=== PATIENT | male | born 1955 | race Caucasian/White ===

== ENCOUNTER → 2016-07-27 | Outpatient (REF) | payer MEDICARE, BC ==
[~2016-07-27] MED LIST: *CXR; /CLON1TA PO; /LABE20TA; /LABE20TA PO; /PANT40TA; /TAMS4CA; /WARF3TA PO; /WARF5TA; ACET65TA OR; ALLE25CA OR; ALLO300T2 PO; AMLO10TA OR; AMLO5TAB2 PO; AMOXIL875 PO; ASPI81TA83 OR; ATENOLOL50 PO; AUGM875T27 PO; CALC0.25 PO; COLA100C2; COLA100C2 OR; COLC0.6T34 PO; CORE25TA OR; CORE25TA PO; DIOVAN3/25 PO; DIOVANHCT PO; DYNACIRC PO; FERR325T; FLOMAX 0.4 PO; HCTZ25 PO; HYDR25TA7 PO; HYDROD25 PO; KEFL500C; LABE100T2; LISINOPR20 PO; PLAV75TA2 OR; PROS5TAB; TESSALO100 PO; THIA100T OR; TYLE-18 PO; VIAG100T PO; VITA500047 PO; ZESTORET20 PO; ZESTRIL PO; ZESTRIL20 PO; ZITHROM500 PO; sodium bicarbonate
[2016-07-27 17:39] LABS: INR 1.99
== END ==
LOC: M SFHCCLAY 11:12
PROVIDERS: ATTEND Nurse Practitioner Family
DX: Z51.81 Encounter for therapeutic drug level monitoring (principal); Z79.01 Long term (current) use of anticoagulants

== ENCOUNTER → 2016-08-10 | Outpatient (REF) | payer MEDICARE, BC ==
[2016-08-10 18:07] LABS: INR 2.08
== END ==
LOC: M SFHCCLAY 11:59
PROVIDERS: ATTEND Nurse Practitioner Family
DX: Z51.81 Encounter for therapeutic drug level monitoring (principal); Z79.01 Long term (current) use of anticoagulants; I48.91 Unspecified atrial fibrillation

== ENCOUNTER → 2016-09-08 | Outpatient (REF) | payer MEDICARE, BC ==
[2016-09-08 17:53] LABS: INR 1.97
== END ==
LOC: M SFHCCLAY 09:59
PROVIDERS: ATTEND Nurse Practitioner Family
DX: Z79.01 Long term (current) use of anticoagulants (principal)

== ENCOUNTER → 2016-09-23 | Outpatient (REF) | payer MEDICARE, BC ==
[2016-09-23 11:32] LABS: INR 2.29
== END ==
LOC: M SFHCCLAY 09:06
PROVIDERS: ATTEND Nurse Practitioner Family
DX: Z79.01 Long term (current) use of anticoagulants (principal)

== ENCOUNTER → 2016-10-13 | Outpatient (REF) | payer MEDICARE, BC ==
[2016-10-13 13:45] LABS: INR 2.1
== END ==
LOC: M SFHCCLAY 07:48
PROVIDERS: ATTEND Nurse Practitioner Family
DX: Z79.01 Long term (current) use of anticoagulants (principal)

== ENCOUNTER → 2016-11-03 | Outpatient (REF) | payer MEDICARE, BC ==
[2016-11-03 11:49] LABS: INR 2.46
== END ==
LOC: M SFHCCLAY 09:29
PROVIDERS: ATTEND Nurse Practitioner Family
DX: Z79.01 Long term (current) use of anticoagulants (principal)

== ENCOUNTER → 2016-12-01 | Outpatient (REF) | payer MEDICARE, BC ==
[2016-12-01 11:22] LABS: INR 3.09
[2016-12-01 11:29] LABS: ALBUMIN 3.1 GM/DL (3.2-5.2); ALBUMIN/GLOBULIN RATIO 0.94 (1.00-1.93); BILIRUBIN,TOTAL 1.6 MG/DL (0.2-1.0); CALCIUM LEVEL 9.1 MG/DL (8.8-10.2); CREATININE FOR GFR 5.03 MG/DL (0.70-1.30); GLOMERULAR FILTRATION RATE 12.5 (>49); POTASSIUM SERUM 3.9 MEQ/L (3.5-5.1); TOTAL PROTEIN 6.4 GM/DL (6.4-8.2); URIC ACID 5.5 MG/DL (3.5-7.2)
== END ==
LOC: M SFHCCLAY 06:57
PROVIDERS: ATTEND Nurse Practitioner Family
DX: R73.01 Impaired fasting glucose (principal); E78.4 Other hyperlipidemia; M10.9 Gout, unspecified; E55.9 Vitamin D deficiency, unspecified; Z79.01 Long term (current) use of anticoagulants

== ENCOUNTER → 2016-12-15 | Outpatient (REF) | payer MEDICARE, BC ==
[2016-12-15 11:36] LABS: INR 2.78
== END ==
LOC: M SFHCCLAY 07:48
PROVIDERS: ATTEND Nurse Practitioner Family
DX: Z79.01 Long term (current) use of anticoagulants (principal)

== ENCOUNTER → 2017-01-12 | Outpatient (REF) | payer MEDICARE, BC ==
[~2017-01-12] MED LIST changes: +ALBU17IN2 INH; +AMOX875T PO; +BENZ100C5 PO; +CARV6.25 PO; +COMBAER6 INH; +E-ZMIS3 XX; +PRED20TA PO; +ZITHTAB PO
[2017-01-12 12:13] LABS: INR 2.81
== END ==
LOC: M SFHCCLAY 07:26
PROVIDERS: ATTEND Nurse Practitioner Family
DX: Z79.01 Long term (current) use of anticoagulants (principal)

== ENCOUNTER → 2017-02-08 | Outpatient (CLI) | payer MEDICARE, BC ==
--- NOTE | 2017-02-08 13:37 | REP ---
Chest two views HISTORY: Cough Comparison: 08/01/2013 The lungs are clear. The cardiac silhouette is enlarged. The pulmonary vasculature is normal in appearance. The bony structure is intact. IMPRESSION: Cardiomegaly.
== END ==
LOC: M CLY 11:01
PROVIDERS: ATTEND Nurse Practitioner Family
DX: J40 Bronchitis, not specified as acute or chronic (principal); R05 Cough; I51.7 Cardiomegaly
CPT/HCPCS: 71020; 85610; G0463

== ENCOUNTER 2017-02-09 12:31 | Emergency (ER) | payer MEDICARE, BC ==
[~2017-02-09] VITALS: Ht 182.9 cm; Wt 92.0 kg
[~2017-02-09 12:31] MED LIST changes: -ALBU17IN2 INH; -AMOX875T PO; -BENZ100C5 PO; -CARV6.25 PO; -COMBAER6 INH; -E-ZMIS3 XX; -PRED20TA PO; -ZITHTAB PO
[2017-02-09] MEDS ORDERED: CARV6.25 PO (12:48)
[2017-02-09] MEDS ORDERED: PRED20TA PO (12:48)
[2017-02-09] MEDS ORDERED: AMOX875T PO (12:48)
[2017-02-09] MEDS ORDERED: BENZ100C5 PO (12:48)
[2017-02-09] MEDS ORDERED: methylPREDNISolone INJ 125 MG/2 ML VIAL (J2930) IV ONE (13:15)
[2017-02-09] MEDS ORDERED: IPRATROPIUM 0.5MG/ALBUTEROL 2.5MG INH SOL UD 3ML (DUONEB)(J7620) NEB ONE ×2 (13:15→16:30)
[2017-02-09 13:27] LABS: BASO % 0.9 % (0.0-1.0); EOS % 0.2 % (0.0-3.0); LARGE UNSTAINED CELL # 0.1 K/mm3 (0.0-0.4); LARGE UNSTAINED CELL % 1.9 % (0.0-4.0); LYMPH # 0.4 K/mm3 (1.5-4.5); LYMPH % 10.3 % (24.0-44.0); MEAN CORPUSCULAR HEMOGLOBIN 35.5 pg (27.0-33.0); MEAN CORPUSCULAR HGB CONC 33.6 g/dl (32.0-36.5); MEAN CORPUSCULAR VOLUME 105.5 fl (80.0-96.0); MONO # 0.2 K/mm3 (0.0-0.8); MONO % 4.5 % (0.0-5.0); NEUTROPHILS # 3.3 K/mm3 (1.8-7.7); NEUTROPHILS % 82.2 % (36.0-66.0); PLATELET COUNT, AUTOMATED 133 k/mm3 (150-450); RED CELL DISTRIBUTION WIDTH 14.5 % (11.5-14.5)
[2017-02-09 13:42] LABS: ALBUMIN 3.4 GM/DL (3.2-5.2); ALBUMIN/GLOBULIN RATIO 0.69 (1.00-1.93); BILIRUBIN,DIRECT 0.7 MG/DL (0.0-0.2); BILIRUBIN,TOTAL 1.2 MG/DL (0.2-1.0); GLOMERULAR FILTRATION RATE 12.5 (>49); POTASSIUM SERUM 4.2 MEQ/L (3.5-5.1); TOTAL PROTEIN 8.3 GM/DL (6.4-8.2)
[2017-02-09] MEDS: ALBUTEROL SULFATE 2.5 MG/0.5 ML INH NEB SOLN NEB SCH ×2 (13:46→14:03)
--- NOTE | 2017-02-09 14:09 | ECGEPIP ---
Stationary ECG Study [facility] - ED Test Date: 2017-02-09 Pat Name: DEANNA MORALES Department: Room: - Gender: M Baker Bench: janet : 1955 Requested By: KETURAH ACKERMAN Order Number: [id number] Reading MD: Elly Alonso Measurements Intervals [place] Rate: 70 P: DC: 0 QRS: 97 QRSD: 130 T: -10 QT: 431 QTc: 465 Interpretive Statements ATRIAL FIBRILLATION RIGHT BUNDLE BRANCH BLOCK NSTTW ABNORMALITY DECREASED RATE 07/05/13 Electronically Signed On 02-09-2017 14:08:44 EDT by Elly Alonos
[2017-02-09 14:10] LABS: ABG BASE EXCESS 2.5 (-2.0-2.0); ABG HCO3 26.4 MEQ/L (22.0-26.0); ABG PARTIAL PRESSURE CO2 38.2 mmHg (35.0-45.0); ABG PARTIAL PRESSURE O2 183.3 mmHg (75.0-100.0); ABG STANDARD HCO3 26.8 MEQ/L (22.0-26.0); ABG TOTAL CO2 27.5 MEQ/L (23.0-31.0); ABG pH (ARTERIAL) 7.457 UNITS (7.350-7.450)
--- NOTE | 2017-02-09 14:24 | REP ---
CHEST PA/LATERAL: 02/09/2017 COMPARISON: 02/08/2017, 08/01/2013, 07/05/2013. CLINICAL HISTORY: Dyspnea and cough. The lung langston are well inflated and are without effusion, lateral pleural thickening, or apical scar. There is cardiomegaly with left atrial and ventricular enlargement and a somewhat globular heart configuration. It is unchanged from yesterday, regarding heart size. There is pulmonary venous hypertension without pulmonary edema. No pleural effusion or dense consolidation. A few cuffed bronchi in the perihilar regions are noted. This might reflect reactive airway disease or bronchitis. Bones intact. The aorta is mildly tortuous without aneurysm. Airway midline. No free air. IMPRESSION: 1. Moderate cardiomegaly with left atrial and ventricular enlargement. Some venous hypertension. No wilbert edema, pleural effusion, or definite infiltrate. 2. Peribronchial thickening may reflect reactive airway disease or bronchitis. Signed by Anton Reeves MD 02/09/2017 07:11 P
[2017-02-09] MEDS ORDERED: ISOVUE-370 76% 100ML VIAL (Q9967) As Ordered ONE (15:14)
[2017-02-09] MEDS ORDERED: E-ZMIS3 XX (15:20)
[2017-02-09] MEDS ORDERED: ALBU17IN2 INH (15:20)
[2017-02-09] MEDS ORDERED: COMBAER6 INH (15:20)
[2017-02-09 16:04] LABS: INR 2.05
[2017-02-09] MEDS ORDERED: ZITHTAB PO (16:05)
--- NOTE | 2017-02-09 16:14 | REP ---
CT ANGIO CHEST: 02/09/2017 Comparison: Chest x-ray today, 02/08/1970 Clinical history dyspnea, elevated D-dimer. On hemodialysis. Dialysis will proceed immediately following this examination. Technique: Helical scanning through the chest after infusion of 75 mL of Isovue 370. Coronal and sagittal thick slab MIP reformatting. Findings: Lung langston show some hazy ground-glass opacities in the right upper lung zone suggesting some minor atelectatic change dependent atelectasis in the posterior lower lung zones fibrotic changes peripherally but mild. No effusion or dense consolidation. No parenchymal mass or infiltrate with air bronchograms. Heart is enlarged with left atrial, left ventricular enlargement as well as right heart enlargement. No pericardial thickening or effusion. Atherosclerotic calcifications of the aortic arch and descending portion without aneurysm or dissection. No pathologic sized mediastinal or hilar adenopathy. The main, right and left pulmonary arteries in the mediastinum are without filling defects. Lobar arteries are also without filling defects. There appears to be filling defects in posterior basal segment left lower lobe pulmonary artery and best seen image 144. I do not see other definite filling defects, segmental or subsegmental arteries evaluated. There is no axillary or supraclavicular mass. The sternum, manubrium, clavicles, humeral heads, scapula, ribs and spine are without acute finding. In the upper abdomen. Small amount of ascites around the liver and spleen. There are cysts in the right hepatic lobe on image 223. No gross hepatosplenomegaly or focal lesion. These organs are seen in their entirety. That portion of gallbladder and pancreas were grossly intact. There is another cyst in the liver 3.4 cm in the caudate lobe. Adrenal glands intact. No hiatal hernia. Impression. 1. There is evidence for filling defect in the posterior basal segment of the left lower lobe suggesting pulmonary embolus with the other segmental lumbar and central pulmonary as without filling defects. Subsegmental arteries are not optimally visualized but those seen were grossly intact. 2. Aortic aneurysm or dissection, pathologic sized adenopathy or pleural effusion. 3. Hazy ground-glass opacity right upper lobe suggesting some atelectasis with underlying fibrotic changes. 4. Cardiomegaly with left and right heart enlargement. No pericardial thickening or effusion. Signed by Anton Reeves MD 02/09/2017 07:14 P
[2017-02-09] MEDS ORDERED: AZITHROMYCIN 250 MG TAB PO ONE (16:15)
[2017-02-09 17:01] VITALS: BP 232/117
== END 2017-02-09 17:04 | disposition home or self-care (01) ==
LOC: M ED 12:31
DX: J18.9 Pneumonia, unspecified organism (principal); I26.99 Other pulmonary embolism without acute cor pulmonale; I11.0 Hypertensive heart disease with heart failure; I48.91 Unspecified atrial fibrillation; N18.9 Chronic kidney disease, unspecified; N40.1 Benign prostatic hyperplasia with lower urinary tract symptoms; Z86.73 Personal history of transient ischemic attack (TIA), and cerebral infarction without residual deficits; Z99.2 Dependence on renal dialysis; Z79.01 Long term (current) use of anticoagulants
CPT/HCPCS: 36415; 36600; 71020; 71275; 80048; 80076; 82550; 82553; 82803; 83605; 83880; 84484; 85025; 85379; 85610; 87040; 93005; 93041; 94640; 96374; 99285; J2930; Q9967

== ENCOUNTER → 2017-02-23 | Outpatient (REF) | payer MEDICARE, BC ==
[~2017-02-23] MED LIST changes: +ALBU17IN2 INH; +AMOX875T PO; +BENZ100C5 PO; +CARV6.25 PO; +COMBAER6 INH; +E-ZMIS3 XX; +PRED20TA PO; +ZITHTAB PO
[2017-02-23 12:09] LABS: INR 1.96
== END ==
LOC: M SFHCCLAY 08:42
PROVIDERS: ATTEND Nurse Practitioner Family
DX: Z79.01 Long term (current) use of anticoagulants (principal); I48.91 Unspecified atrial fibrillation

== ENCOUNTER → 2017-03-09 | Outpatient (REF) | payer MEDICARE, BC ==
[2017-03-09 11:53] LABS: INR 2.11
== END ==
LOC: M SFHCCLAY 08:39
PROVIDERS: ATTEND Nurse Practitioner Family
DX: Z79.01 Long term (current) use of anticoagulants (principal)

== ENCOUNTER → 2017-03-23 | Outpatient (REF) | payer MEDICARE, BC ==
[2017-03-23 18:38] LABS: INR 2.39
== END ==
LOC: M SFHCCLAY 10:12
PROVIDERS: ATTEND Nurse Practitioner Family
DX: Z79.01 Long term (current) use of anticoagulants (principal); I48.91 Unspecified atrial fibrillation

== ENCOUNTER → 2017-04-06 | Outpatient (REF) | payer MEDICARE, BC ==
[2017-04-06 12:18] LABS: INR 2.22
== END ==
LOC: M SFHCCLAY 09:14
PROVIDERS: ATTEND Nurse Practitioner Family
DX: Z79.01 Long term (current) use of anticoagulants (principal); Z79.899 Other long term (current) drug therapy; I48.91 Unspecified atrial fibrillation

== ENCOUNTER → 2017-05-04 | Outpatient (REF) | payer MEDICARE, BC ==
[2017-05-04 12:10] LABS: INR 2.24
== END ==
LOC: M SFHCCLAY 08:08
PROVIDERS: ATTEND Nurse Practitioner Family
DX: Z79.01 Long term (current) use of anticoagulants (principal); I48.91 Unspecified atrial fibrillation

== ENCOUNTER → 2017-06-01 | Outpatient (REF) | payer MEDICARE, BC ==
[2017-06-01 12:13] LABS: INR 2.03
== END ==
LOC: M SFHCCLAY 09:27
PROVIDERS: ATTEND Nurse Practitioner Family
DX: Z79.01 Long term (current) use of anticoagulants (principal)

== ENCOUNTER → 2017-06-29 | Outpatient (REF) | payer MEDICARE, BC ==
[2017-06-29 11:49] LABS: INR 2.97
== END ==
LOC: M SFHCCLAY 09:08
PROVIDERS: ATTEND Nurse Practitioner Family
DX: I48.91 Unspecified atrial fibrillation (principal)

== ENCOUNTER → 2017-07-26 | Outpatient (REF) | payer MEDICARE, BC ==
[2017-07-26 11:49] LABS: HEMATOCRIT 40.3 % (42.0-52.0); HEMOGLOBIN 13.5 g/dl (14.0-18.0); MEAN CORPUSCULAR HEMOGLOBIN 34.3 pg (27.0-33.0); MEAN CORPUSCULAR HGB CONC 33.5 g/dl (32.0-36.5); MEAN CORPUSCULAR VOLUME 102.3 fl (80.0-96.0); PLATELET COUNT, AUTOMATED 156 10^3/uL (150-450); RED BLOOD COUNT 3.94 10^6/uL (4.30-6.10); RED CELL DISTRIBUTION WIDTH 14.5 % (11.5-14.5); WHITE BLOOD COUNT 6.2 10^3/uL (4.0-10.0)
[2017-07-26 11:56] LABS: ALBUMIN 3.3 GM/DL (3.2-5.2); ALBUMIN/GLOBULIN RATIO 0.77 (1.00-1.93); ALKALINE PHOSPHATASE 170 U/L (45-117); ALT/SGPT 28 U/L (12-78); ANION GAP 9 MEQ/L (8-16); AST/SGOT 42 U/L (7-37); BILIRUBIN,TOTAL 1.8 MG/DL (0.2-1.0); BLOOD UREA NITROGEN 53 MG/DL (7-18); CALCIUM LEVEL 9.4 MG/DL (8.8-10.2); CARBON DIOXIDE LEVEL 29 MEQ/L (21-32); CHLORIDE LEVEL 92 MEQ/L (98-107); CHOLESTEROL LEVEL 115 MG/DL (<200); CHOLESTEROL RISK RATIO 2.738 (<5); CREATININE FOR GFR 6.42 MG/DL (0.70-1.30); GLOMERULAR FILTRATION RATE 9.4 (>49); GLUCOSE, FASTING 101 MG/DL (80-110); HDL CHOLESTEROL 42 MG/DL (>40); LDL CHOLESTEROL 55.4 MG/DL (<100); NON-HDL-C 73 MG/DL; POTASSIUM SERUM 4.1 MEQ/L (3.5-5.1); SODIUM LEVEL 130 MEQ/L (136-145); TOTAL PROTEIN 7.6 GM/DL (6.4-8.2); TRIGLYCERIDES LEVEL 88 MG/DL (<150); URIC ACID 8.7 MG/DL (3.5-7.2)
[2017-07-26 12:00] LABS: INR 4.48
== END ==
LOC: M SFHCCLAY 08:09
DX: N18.6 End stage renal disease (principal); E78.4 Other hyperlipidemia; M10.9 Gout, unspecified; E55.9 Vitamin D deficiency, unspecified
CPT/HCPCS: 84550

== ENCOUNTER → 2017-08-10 | Outpatient (REF) | payer MEDICARE, BC ==
[2017-08-10 11:52] LABS: INR 3.29
== END ==
LOC: M SFHCCLAY 08:56
DX: I48.91 Unspecified atrial fibrillation (principal)
CPT/HCPCS: 85610

== ENCOUNTER → 2017-08-16 | Outpatient (REF) | payer MEDICARE, BC ==
[2017-08-16 18:35] LABS: INR 3.56; PROTHROMBIN TIME 37.3 SECONDS (12.4-14.5)
== END ==
LOC: M SFHCCLAY 11:07
DX: I48.91 Unspecified atrial fibrillation (principal); Z51.81 Encounter for therapeutic drug level monitoring; Z79.01 Long term (current) use of anticoagulants
CPT/HCPCS: 85610

== ENCOUNTER → 2017-08-23 | Outpatient (REF) | payer MEDICARE, BC ==
[2017-08-23 18:10] LABS: INR 3.93; PROTHROMBIN TIME 40.5 SECONDS (12.4-14.5)
== END ==
LOC: M SFHCCLAY 12:58
DX: I48.91 Unspecified atrial fibrillation (principal)
CPT/HCPCS: 85610

== ENCOUNTER → 2017-08-30 | Outpatient (REF) | payer MEDICARE, BC ==
[2017-08-30 12:04] LABS: INR 2.05; PROTHROMBIN TIME 23.8 SECONDS (12.4-14.5)
== END ==
LOC: M SFHCCLAY 09:17
DX: Z51.81 Encounter for therapeutic drug level monitoring (principal); Z79.02 Long term (current) use of antithrombotics/antiplatelets; I48.91 Unspecified atrial fibrillation
CPT/HCPCS: 85610

== ENCOUNTER → 2017-09-06 | Outpatient (REF) | payer MEDICARE, BC ==
[2017-09-06 17:52] LABS: INR 1.75
== END ==
LOC: M SFHCCLAY 09:52
DX: I48.91 Unspecified atrial fibrillation (principal)
CPT/HCPCS: 85610

== ENCOUNTER → 2017-09-13 | Outpatient (REF) | payer MEDICARE, BC ==
[2017-09-13 11:51] LABS: PROTHROMBIN TIME 23.4 SECONDS (12.4-14.5)
== END ==
LOC: M SFHCCLAY 09:00
DX: I48.91 Unspecified atrial fibrillation (principal)
CPT/HCPCS: 85610

== ENCOUNTER → 2017-09-20 | Outpatient (REF) | payer MEDICARE, BC ==
[2017-09-20 14:29] LABS: INR 1.93; PROTHROMBIN TIME 22.7 SECONDS (12.4-14.5)
== END ==
LOC: M SFHCCLAY 09:47
DX: I48.91 Unspecified atrial fibrillation (principal)
CPT/HCPCS: 85610

== ENCOUNTER → 2017-09-29 | Outpatient (REF) | payer MEDICARE, BC ==
[2017-09-29 11:36] LABS: BASO % 0.8 % (0.0-1.0); EOS # 0.1 10^3/uL (0.0-0.50); EOS % 1.8 % (0.0-3.0); HEMATOCRIT 35.2 % (42.0-52.0); HEMOGLOBIN 11.7 g/dl (14.0-18.0); IMMATURE GRANULOCYTE % 0.4 % (0-3.0); LYMPH # 0.8 10^3/uL (1.5-4.5); LYMPH % 17.2 % (24.0-44.0); MEAN CORPUSCULAR HEMOGLOBIN 35.2 pg (27.0-33.0); MEAN CORPUSCULAR HGB CONC 33.2 g/dl (32.0-36.5); MONO # 0.8 10^3/uL (0.0-0.8); MONO % 16.4 % (0.0-5.0); NEUTROPHILS # 3.1 10^3/uL (1.8-7.7); NEUTROPHILS % 63.4 % (36.0-66.0); PLATELET COUNT, AUTOMATED 146 10^3/uL (150-450); RED BLOOD COUNT 3.32 10^6/uL (4.30-6.10); RED CELL DISTRIBUTION WIDTH 15.3 % (11.5-14.5); WHITE BLOOD COUNT 4.9 10^3/uL (4.0-10.0)
[2017-09-29 11:54] LABS: ALBUMIN 2.9 GM/DL (3.2-5.2); ALBUMIN/GLOBULIN RATIO 0.73 (1.00-1.93); ALKALINE PHOSPHATASE 151 U/L (45-117); ALT/SGPT 19 U/L (12-78); ANION GAP 6 MEQ/L (8-16); AST/SGOT 24 U/L (7-37); BILIRUBIN,TOTAL 1.4 MG/DL (0.2-1.0); BLOOD UREA NITROGEN 13 MG/DL (7-18); CALCIUM LEVEL 8.9 MG/DL (8.8-10.2); CARBON DIOXIDE LEVEL 34 MEQ/L (21-32); CHLORIDE LEVEL 95 MEQ/L (98-107); CREATININE FOR GFR 3.08 MG/DL (0.70-1.30); FREE THYROXINE INDEX 3.6 % (1.4-3.8); GLOMERULAR FILTRATION RATE 21.9 (>49); GLUCOSE, FASTING 105 MG/DL (70-100); POTASSIUM SERUM 3.8 MEQ/L (3.5-5.1); SODIUM LEVEL 135 MEQ/L (136-145); T UPTAKE 37 % (33-40); THYROXINE (T4) 9.7 UG/DL (4.5-12.0); TOTAL PROTEIN 6.9 GM/DL (6.4-8.2); URIC ACID 3.3 MG/DL (3.5-7.2)
[2017-09-29 14:54] LABS: NT-PRO BNP 51955 PG/ML (<125)
== END ==
LOC: M SFHCCLAY 08:25
DX: R60.9 Edema, unspecified (principal); M10.9 Gout, unspecified; N50.89 Other specified disorders of the male genital organs; N18.6 End stage renal disease; W57.XXXA Bitten or stung by nonvenomous insect and other nonvenomous arthropods, initial encounter
CPT/HCPCS: 84443

== ENCOUNTER → 2017-09-29 | Outpatient (CLI) | payer MEDICARE, BC | LOC: M CLY 08:38 | DX: R60.9 Edema, unspecified (principal); I51.7 Cardiomegaly; I28.8 Other diseases of pulmonary vessels | CPT/HCPCS: 71046 ==

== ENCOUNTER 2017-10-24 09:55 | Emergency (ER) | payer MEDICARE, BC ==
[2017-10-24 11:08] LABS: BASO # 0.1 10^3/uL (0.0-0.2); EOS # 0.2 10^3/uL (0.0-0.50); EOS % 2.6 % (0.0-3.0); HEMATOCRIT 38.2 % (42.0-52.0); HEMOGLOBIN 12.9 g/dl (13.5-17.5); IMMATURE GRANULOCYTE % 0.3 % (0-3.0); LYMPH # 0.9 10^3/uL (1.5-4.5); LYMPH % 15.3 % (24.0-44.0); MEAN CORPUSCULAR HEMOGLOBIN 35.3 pg (27.0-33.0); MEAN CORPUSCULAR HGB CONC 33.8 g/dl (32.0-36.5); MEAN CORPUSCULAR VOLUME 104.7 fl (80.0-96.0); MONO # 0.6 10^3/uL (0.0-0.8); MONO % 9.6 % (0.0-5.0); NEUTROPHILS # 4.4 10^3/uL (1.8-7.7); NEUTROPHILS % 71.2 % (36.0-66.0); PLATELET COUNT, AUTOMATED 166 10^3/uL (150-450); RED BLOOD COUNT 3.65 10^6/uL (4.30-6.10); RED CELL DISTRIBUTION WIDTH 15.6 % (11.5-14.5); WHITE BLOOD COUNT 6.2 10^3/uL (4.0-10.0)
[2017-10-24 11:18] LABS: INR 1.35
[2017-10-24 11:34] LABS: LACTIC ACID SEPSIS PROTOCOL 1.6 MMOL/L (0.4-2.0)
[2017-10-24 11:36] LABS: ALBUMIN 3.2 GM/DL (3.2-5.2); ALKALINE PHOSPHATASE 153 U/L (45-117); ALT/SGPT 17 U/L (12-78); AMYLASE 67 U/L (25-115); ANION GAP 9 MEQ/L (8-16); AST/SGOT 28 U/L (7-37); BILIRUBIN,DIRECT 0.8 MG/DL (0.0-0.2); BILIRUBIN,TOTAL 1.4 MG/DL (0.2-1.0); BLOOD UREA NITROGEN 41 MG/DL (7-18); CALCIUM LEVEL 9.9 MG/DL (8.8-10.2); CARBON DIOXIDE LEVEL 28 MEQ/L (21-32); CHLORIDE LEVEL 96 MEQ/L (98-107); CREATININE FOR GFR 4.53 MG/DL (0.70-1.30); GLUCOSE, FASTING 104 MG/DL (70-100); LIPASE 390 U/L (73-393); POTASSIUM SERUM 3.7 MEQ/L (3.5-5.1); SODIUM LEVEL 133 MEQ/L (136-145); TOTAL PROTEIN 7.8 GM/DL (6.4-8.2)
== END 2017-10-24 14:53 | disposition left against medical advice (07) ==
LOC: M ED 09:55
DX: R18.8 Other ascites (principal); I10 Essential (primary) hypertension; K21.9 Gastro-esophageal reflux disease without esophagitis; N40.0 Benign prostatic hyperplasia without lower urinary tract symptoms; Z86.73 Personal history of transient ischemic attack (TIA), and cerebral infarction without residual deficits; Z79.899 Other long term (current) drug therapy; Z79.01 Long term (current) use of anticoagulants; Z87.891 Personal history of nicotine dependence
CPT/HCPCS: 71046

== ENCOUNTER → 2017-10-27 | Outpatient (CLI) | payer MEDICARE, BC | LOC: M RAD 09:20 → M RADPRO 09:20 | DX: R18.8 Other ascites (principal); N18.6 End stage renal disease; N50.89 Other specified disorders of the male genital organs; Z99.2 Dependence on renal dialysis; Z88.1 Allergy status to other antibiotic agents; Z79.01 Long term (current) use of anticoagulants; Z79.899 Other long term (current) drug therapy | CPT/HCPCS: 49083; 76705 ==

== ENCOUNTER 2017-10-29 12:05 | Emergency (ER) | payer MEDICARE, BC | END 2017-10-29 14:16 | disposition home or self-care (01) | LOC: M ED 12:05 | DX: N50.89 Other specified disorders of the male genital organs (principal); N48.89 Other specified disorders of penis; I48.91 Unspecified atrial fibrillation; I12.9 Hypertensive chronic kidney disease with stage 1 through stage 4 chronic kidney disease, or unspecified chronic kidney disease; N18.4 Chronic kidney disease, stage 4 (severe); N40.0 Benign prostatic hyperplasia without lower urinary tract symptoms; Z79.01 Long term (current) use of anticoagulants; Z79.899 Other long term (current) drug therapy; Z99.2 Dependence on renal dialysis; Z86.73 Personal history of transient ischemic attack (TIA), and cerebral infarction without residual deficits; Z98.890 Other specified postprocedural states | CPT/HCPCS: 99282 ==

== ENCOUNTER → 2017-11-18 | Outpatient (CLI) | payer MEDICARE, BC ==
[2017-11-18 13:04] LABS: INR 1.35
== END ==
LOC: M RADPRO 12:21
DX: R18.8 Other ascites (principal); N18.6 End stage renal disease; C61 Malignant neoplasm of prostate; M10.9 Gout, unspecified; I12.0 Hypertensive chronic kidney disease with stage 5 chronic kidney disease or end stage renal disease; E78.00 Pure hypercholesterolemia, unspecified; Z87.09 Personal history of other diseases of the respiratory system; Z88.8 Allergy status to other drugs, medicaments and biological substances
CPT/HCPCS: 49083

== ENCOUNTER → 2017-12-01 | Outpatient (CLI) | payer MEDICARE, BC | LOC: M RADPRO 12:15 | DX: R18.8 Other ascites (principal); Z79.82 Long term (current) use of aspirin; Z79.899 Other long term (current) drug therapy; Z79.01 Long term (current) use of anticoagulants | CPT/HCPCS: 49083 ==

== ENCOUNTER → 2017-12-15 | Outpatient (CLI) | payer MEDICARE, BC | LOC: M RADPRO 12:12 | DX: R18.8 Other ascites (principal); Z99.2 Dependence on renal dialysis; Z79.82 Long term (current) use of aspirin; Z79.899 Other long term (current) drug therapy; Z79.01 Long term (current) use of anticoagulants | CPT/HCPCS: 49083 ==

== ENCOUNTER → 2017-12-29 | Outpatient (CLI) | payer MEDICARE, BC | LOC: M RADPRO 12:12 | DX: R18.8 Other ascites (principal); Z79.82 Long term (current) use of aspirin; Z79.899 Other long term (current) drug therapy | CPT/HCPCS: 49083 ==

== ENCOUNTER → 2018-01-12 | Outpatient (CLI) | payer MEDICARE, BC | LOC: M RADPRO 12:16 | DX: R18.8 Other ascites (principal); Z79.82 Long term (current) use of aspirin; Z79.899 Other long term (current) drug therapy | CPT/HCPCS: 49083 ==

== ENCOUNTER → 2018-01-26 | Outpatient (CLI) | payer MEDICARE, BC | LOC: M RADPRO 12:19 | DX: R18.8 Other ascites (principal); Z79.82 Long term (current) use of aspirin; Z79.01 Long term (current) use of anticoagulants; Z79.899 Other long term (current) drug therapy | CPT/HCPCS: 49083 ==

== ENCOUNTER → 2018-02-09 | Outpatient (CLI) | payer MEDICARE, BC | LOC: M RADPRO 11:16 | DX: R18.8 Other ascites (principal); Z79.82 Long term (current) use of aspirin; Z79.899 Other long term (current) drug therapy; Z79.01 Long term (current) use of anticoagulants | CPT/HCPCS: 49083 ==

== ENCOUNTER → 2018-02-23 | Outpatient (CLI) | payer MEDICARE, BC | LOC: M RADPRO 12:13 | DX: R18.8 Other ascites (principal) | CPT/HCPCS: 49083 ==

== ENCOUNTER → 2018-03-09 | Outpatient (CLI) | payer MEDICARE, BC | LOC: M RADPRO 12:11 | DX: R18.8 Other ascites (principal); Z79.82 Long term (current) use of aspirin; Z79.01 Long term (current) use of anticoagulants; Z79.899 Other long term (current) drug therapy | CPT/HCPCS: 49083 ==

== ENCOUNTER → 2018-03-23 | Outpatient (CLI) | payer MEDICARE, BC | LOC: M RADPRO 12:40 | DX: R18.8 Other ascites (principal) | CPT/HCPCS: 76705 ==

== ENCOUNTER → 2018-03-29 | Outpatient (CLI) | payer MEDICARE, BC | LOC: M RADPRO 08:18 | DX: R18.8 Other ascites (principal); N18.6 End stage renal disease; I12.0 Hypertensive chronic kidney disease with stage 5 chronic kidney disease or end stage renal disease; E78.00 Pure hypercholesterolemia, unspecified; I48.91 Unspecified atrial fibrillation; J44.9 Chronic obstructive pulmonary disease, unspecified; C61 Malignant neoplasm of prostate; M17.0 Bilateral primary osteoarthritis of knee; Z79.82 Long term (current) use of aspirin; Z79.899 Other long term (current) drug therapy; Z79.01 Long term (current) use of anticoagulants; Z87.39 Personal history of other diseases of the musculoskeletal system and connective tissue; Z86.73 Personal history of transient ischemic attack (TIA), and cerebral infarction without residual deficits; Z99.2 Dependence on renal dialysis | CPT/HCPCS: 49083 ==

== ENCOUNTER → 2018-04-20 | Outpatient (CLI) | payer MEDICARE, BC | LOC: M RADPRO 12:17 | DX: R18.8 Other ascites (principal); Z79.82 Long term (current) use of aspirin; Z79.899 Other long term (current) drug therapy; Z79.01 Long term (current) use of anticoagulants | CPT/HCPCS: 49083 ==

== ENCOUNTER → 2018-05-04 | Outpatient (CLI) | payer MEDICARE, BC | LOC: M RADPRO 12:32 | DX: R18.8 Other ascites (principal); Z79.01 Long term (current) use of anticoagulants; Z79.82 Long term (current) use of aspirin; Z79.899 Other long term (current) drug therapy | CPT/HCPCS: 49083 ==

== ENCOUNTER → 2018-05-15 | Outpatient (CLI) | payer MEDICARE, BC | LOC: M RADPRO 11:41 | DX: R18.8 Other ascites (principal); Z79.82 Long term (current) use of aspirin; Z79.899 Other long term (current) drug therapy | CPT/HCPCS: 49083 ==

== ENCOUNTER → 2018-05-31 | Outpatient (CLI) | payer MEDICARE, BC | LOC: M RADPRO 12:43 | DX: R18.8 Other ascites (principal); Z79.82 Long term (current) use of aspirin; Z79.899 Other long term (current) drug therapy; Z79.01 Long term (current) use of anticoagulants | CPT/HCPCS: 49083 ==

== ENCOUNTER → 2018-06-08 | Outpatient (CLI) | payer MEDICARE, BC | LOC: M CLY 15:29 | DX: J90 Pleural effusion, not elsewhere classified (principal); I51.7 Cardiomegaly; J94.8 Other specified pleural conditions; R06.02 Shortness of breath | CPT/HCPCS: 71046; G0463 ==

== ENCOUNTER → 2018-06-15 | Outpatient (CLI) | payer MEDICARE, BC | LOC: M RADPRO 12:25 | DX: J90 Pleural effusion, not elsewhere classified (principal); R18.8 Other ascites; Z79.82 Long term (current) use of aspirin; Z79.899 Other long term (current) drug therapy; Z79.01 Long term (current) use of anticoagulants | CPT/HCPCS: 32555 ==

== ENCOUNTER → 2018-06-23 | Outpatient (CLI) | payer MEDICARE, BC ==
[~2018-06-23] MED LIST changes: +ASPI81TA85 PO; +BENZ-18 PO; -BENZ100C5 PO; +CINA30TA PO; +CLON0.2T PO; +[UNRECOGNIZED DRUG - OTHER] PO
--- NOTE | 2018-06-23 17:10 | REP ---
Ultrasound-guided paracentesis The procedure was performed under the direct supervision of Dr. Ventura. The risks and benefits of the procedure were explained to the patient and informed consent was obtained. The largest pocket of fluid was localized in the left lower quadrant using ultrasound guidance. The skin was prepped and draped in a sterile fashion. 1% lidocaine was used as a local anesthetic. An 8-Thai multi side-hole catheter was inserted using trocar technique. 1400 ml of dileep colored fluid was withdrawn and discarded. The patient tolerated the procedure well and there were no immediate complications. After the appropriate amount of monitored convalescence the patient was discharged from the department. Reviewed by VIELKA Blankenship 06/23/2018 04:56 P Electronically Signed by Rhys Ventura MD 06/23/2018 05:01 P
== END ==
LOC: M RADPRO 14:07
PROVIDERS: ATTEND Internal Medicine Nephrology
DX: R18.8 Other ascites (principal); Z79.82 Long term (current) use of aspirin; Z79.899 Other long term (current) drug therapy; Z79.01 Long term (current) use of anticoagulants

== ENCOUNTER → 2018-06-27 | Outpatient (CLI) | payer MEDICARE, BC ==
[~2018-06-27] MED LIST changes: -*CXR; -/CLON1TA PO; -/LABE20TA; -/LABE20TA PO; -/PANT40TA; -/TAMS4CA; -/WARF3TA PO; -/WARF5TA; -ACET65TA OR; -ALBU17IN2 INH; -ALLE25CA OR; -ALLO300T2 PO; -AMLO10TA OR; -AMLO5TAB2 PO; -AMOX875T PO; -AMOXIL875 PO; -ASPI81TA83 OR; -ASPI81TA85 PO; -ATENOLOL50 PO; -AUGM875T27 PO; -BENZ-18 PO; -CALC0.25 PO; -CARV6.25 PO; -CINA30TA PO; -CLON0.2T PO; -COLA100C2; -COLA100C2 OR; -COLC0.6T34 PO; -COMBAER6 INH; -CORE25TA OR; -CORE25TA PO; -DIOVAN3/25 PO; -DIOVANHCT PO; -DYNACIRC PO; -E-ZMIS3 XX; -FERR325T; -FLOMAX 0.4 PO; -HCTZ25 PO; -HYDR25TA7 PO; -HYDROD25 PO; +ISOVUE-300 61% 50ML VIAL (Q9967) As Ordered; -KEFL500C; -LABE100T2; +LIDOCAINE 2% MDV 20 ML VIAL As Ordered; -LISINOPR20 PO; +MIDAZOLAM INJ 2 MG/2 ML VIAL (J2250) As Ordered; -PLAV75TA2 OR; -PRED20TA PO; -PROS5TAB; -TESSALO100 PO; -THIA100T OR; -TYLE-18 PO; -VIAG100T PO; -VITA500047 PO; -ZESTORET20 PO; -ZESTRIL PO; -ZESTRIL20 PO; -ZITHROM500 PO; -ZITHTAB PO; -[UNRECOGNIZED DRUG - OTHER] PO; +fentaNYL 100 MCG/2 ML INJECTION (J3010) As Ordered; -sodium bicarbonate
== END | disposition home or self-care (01) ==
LOC: M IRPRO 09:02
DX: T82.590A Other mechanical complication of surgically created arteriovenous fistula, initial encounter (principal); N18.6 End stage renal disease
CPT/HCPCS: 36901

== ENCOUNTER → 2018-06-29 | Outpatient (CLI) | payer MEDICARE, BC ==
[~2018-06-29] MED LIST changes: +*CXR; +/CLON1TA PO; +/LABE20TA; +/LABE20TA PO; +/PANT40TA; +/TAMS4CA; +/WARF3TA PO; +/WARF5TA; +ACET65TA OR; +ALBU17IN2 INH; +ALLE25CA OR; +ALLO300T2 PO; +AMLO10TA OR; +AMLO5TAB2 PO; +AMOX875T PO; +AMOXIL875 PO; +ASPI81TA83 OR; +ASPI81TA85 PO; +ATENOLOL50 PO; +AUGM875T27 PO; +BENZ-18 PO; +CALC0.25 PO; +CARV6.25 PO; +CINA30TA PO; +CLON0.2T PO; +COLA100C2; +COLA100C2 OR; +COLC0.6T34 PO; +COMBAER6 INH; +CORE25TA OR; +CORE25TA PO; +DIOVAN3/25 PO; +DIOVANHCT PO; +DYNACIRC PO; +E-ZMIS3 XX; +FERR325T; +FLOMAX 0.4 PO; +HCTZ25 PO; +HYDR25TA7 PO; +HYDROD25 PO; -ISOVUE-300 61% 50ML VIAL (Q9967) As Ordered; +KEFL500C; +LABE100T2; -LIDOCAINE 2% MDV 20 ML VIAL As Ordered; +LISINOPR20 PO; -MIDAZOLAM INJ 2 MG/2 ML VIAL (J2250) As Ordered; +PLAV75TA2 OR; +PRED20TA PO; +PROS5TAB; +TESSALO100 PO; +THIA100T OR; +TYLE-18 PO; +VIAG100T PO; +VITA500047 PO; +ZESTORET20 PO; +ZESTRIL PO; +ZESTRIL20 PO; +ZITHROM500 PO; +ZITHTAB PO; +[UNRECOGNIZED DRUG - OTHER] PO; -fentaNYL 100 MCG/2 ML INJECTION (J3010) As Ordered; +sodium bicarbonate
--- NOTE | 2018-06-29 14:10 | REP ---
Chest x-ray: Two views: History: Post thoracentesis. Comparison study: June 15, 2018. Findings: The patient is status post right thoracentesis. There is no evidence of pneumothorax. There is some residual blunting of the right lateral pleural angle. Cardiomegaly is observed. No visible left pleural effusion. Impression: Small pleural effusion persists improved. No evidence of pneumothorax or other complication. Cardiomegaly is again seen. Electronically Signed by Wade Barnard MD 06/29/2018 03:11 P
--- NOTE | 2018-06-29 16:33 | REP ---
ULTRASOUND-GUIDED RIGHT THORACENTESIS The procedure was performed under the direct supervision of Dr. Barnard. The risks and benefits of the procedure were explained to the patient and informed consent was obtained. The right pleural effusion was localized using ultrasound guidance. The skin was prepped and draped in a sterile fashion. 1% lidocaine was used as a local anesthetic. An 8-Citizen Of [place] multi side-hole catheter was inserted using trocar technique. Approximately half way through the procedure the catheter was inadvertently pulled out. A new 8-Citizen [place] multi side-hole catheter was inserted. 2330 ml of yellow fluid was withdrawn with a sample sent to the lab for analysis. The patient tolerated the procedure well and there were no immediate complications. After the appropriate amount of monitored convalescence the patient was discharged from the department. Reviewed by VIELKA Blankenship 06/29/2018 04:21 P Electronically Signed by Wade Barnard MD 06/29/2018 04:24 P
== END ==
LOC: M RADPRO 12:13
PROVIDERS: ATTEND Internal Medicine Nephrology
DX: J90 Pleural effusion, not elsewhere classified (principal); Z79.82 Long term (current) use of aspirin; Z79.899 Other long term (current) drug therapy; Z79.01 Long term (current) use of anticoagulants

== ENCOUNTER → 2018-07-31 | Outpatient (CLI) | payer MEDICARE, BC ==
--- NOTE | 2018-07-31 13:46 | REP ---
CHEST X-RAY: Two views. HISTORY: Post right thoracentesis radiographs. Rule out pneumothorax. COMPARISON STUDY: June 29, 2018, which was also just post thoracentesis. FINDINGS: Moderate cardiomegaly is again observed. There is a right pleural effusion blunting the right lateral pleural angle similar to the prior study. There is no evidence of pneumothorax. IMPRESSION: Right pleural effusion. Moderate cardiac enlargement. No complication is visible. Electronically Signed by Wade Barnard MD 07/31/2018 01:50 P
--- NOTE | 2018-07-31 19:14 | REP ---
ULTRASOUND-GUIDED RIGHT THORACENTESIS The procedure was performed under the direct supervision of Dr. Barnard. The risks and benefits of the procedure were explained to the patient and informed consent was obtained. The right pleural effusion was localized using ultrasound guidance. The skin was prepped and draped in a sterile fashion. 1% lidocaine was used as a local anesthetic. An 8-Vietnamese multi side-hole catheter was inserted using trocar technique. 2100 ml of yellow fluid was withdrawn and discarded. The patient tolerated the procedure well and there were no immediate complications. After the appropriate amount of monitored convalescence the patient was discharged from the department. Reviewed by VIELKA Blankenship 07/31/2018 04:29 P Electronically Signed by Wade Barnard MD 07/31/2018 07:05 P
== END ==
LOC: M RADPRO 12:26
PROVIDERS: ATTEND Internal Medicine Nephrology
DX: J90 Pleural effusion, not elsewhere classified (principal); I51.7 Cardiomegaly; N18.6 End stage renal disease; I15.0 Renovascular hypertension; Z79.82 Long term (current) use of aspirin; Z79.899 Other long term (current) drug therapy; Z79.01 Long term (current) use of anticoagulants

== ENCOUNTER → 2018-08-15 | Outpatient (CLI) | payer MEDICARE, BC ==
[~2018-08-15] MED LIST changes: +COUM1TAB19 PO; +LIDOCAINE 1% MDV 20ML VIAL As Ordered ONE; +RENV2TAB PO; +TYLE500T78 PO
--- NOTE | 2018-08-15 20:38 | REP ---
Ultrasound-guided paracentesis The procedure was performed under the direct supervision of Dr. Barnard. The risks and benefits of the procedure were explained to the patient and informed consent was obtained. The largest pocket of fluid was localized in the right flank using ultrasound guidance. The skin was prepped and draped in a sterile fashion. 1% lidocaine was used as a local anesthetic. Using ultrasound guidance an 8-Kyrgyz multi side-hole catheter was inserted using trocar technique. 2800 ml of dileep colored fluid was withdrawn and discarded. The patient tolerated the procedure well and there were no immediate complications. After the appropriate amount of monitored convalescence the patient was discharged from the department. Reviewed by VIELKA Blankenship 08/15/2018 02:34 P Electronically Signed by Wade Barnard MD 08/15/2018 08:28 P
== END ==
LOC: M RADPRO 11:13
PROVIDERS: ATTEND Internal Medicine Nephrology
DX: R18.8 Other ascites (principal)

== ENCOUNTER → 2018-08-17 | Outpatient (CLI) | payer MEDICARE, BC ==
[~2018-08-17] MED LIST changes: -LIDOCAINE 1% MDV 20ML VIAL As Ordered ONE
--- NOTE | 2018-08-17 10:11 | REP ---
Chest two views HISTORY: Pleural effusion Comparison: 07/31/2018 Parenchymal density is present in the right lower lobe consistent with atelectasis or infiltrate. A right pleural effusion is present that is increased in size compared to the previous study. The left lung is clear. The cardiac silhouette is enlarged. The pulmonary vasculature is normal in appearance. The bony structure is intact. IMPRESSION: 1. Right lower lobe atelectasis or infiltrate. 2. Right pleural effusion increased in size compared to the previous study. 3. Cardiomegaly. Electronically Signed by Power Jones MD 08/17/2018 10:03 A
== END ==
LOC: M SMT 09:43
PROVIDERS: ATTEND Thoracic Surgery (Cardiothoracic Vascular Surgery)
DX: J90 Pleural effusion, not elsewhere classified (principal); I51.7 Cardiomegaly; R91.8 Other nonspecific abnormal finding of lung field

== ENCOUNTER 2018-08-24 12:07 | Day surgery (SDC) | payer MEDICARE, BC ==
[~2018-08-24] VITALS: Ht 177.8 cm; Wt 88.5 kg
[~2018-08-24 12:07] MED LIST changes: +MUPIROCIN 2% OINT 22 GM TUBE TOP ONE
[2018-08-24] MEDS ORDERED: ceFAZolin 2 GM/D5W 50 ML IV BAG (J0690 PER 500MG) As Ordered ONE (12:26)
[2018-08-24] MEDS ORDERED: MIDAZOLAM INJ 2 MG/2 ML VIAL (J2250) As Ordered ONE ×2 (13:02→13:03)
[2018-08-24] MEDS ORDERED: NS 1,000 ML IV ONE (13:15)
[2018-08-24 14:18] LABS: APPEARANCE, BODY FLUID CLEAR (CLEAR); PLEURAL FL COLOR YELLOW (COLORLESS); SOURCE, BODY FLUID PLEURAL
[2018-08-24 14:45] LABS: PH BODY FLUID 7.649 UNITS (NOT ESTABLISHED); SOURCE, BODY FLUID pH PLEURAL
[2018-08-24 14:50] VITALS: BP 122/74
[2018-08-24 14:55] LABS: AMYLASE, BODY FLUID 34 U/L (NOT ESTABLISHED); CHOLESTEROL, BODY FLUID < 50 MG/DL (NOT ESTABLISHED); SOURCE, BODY FLUID ALBUMIN PLEURAL; SOURCE, BODY FLUID AMYLASE PLEURAL; SOURCE, BODY FLUID CHOL PLEURAL; SOURCE, BODY FLUID GLUCOSE PLEURAL; SOURCE, BODY FLUID TOT PROTEIN PLEURAL; SOURCE, BODY FLUID TRIG PLEURAL; TRIGLYCERIDE, BODY FLUID 34 MG/DL (NOT ESTABLISHED)
[2018-08-24 15:50] LABS: LDH, BODY FLUID 83 U/L (NOT ESTABLISHED); SOURCE, BODY FLUID LDH PLEURAL
--- NOTE | 2018-08-24 16:13 | REP ---
Chest one-view HISTORY: Pleural effusion Comparison: 08/17/2018 A right pleural effusion is present decreased compared to the previous study. The left lung is clear. The cardiac silhouette is enlarged. The pulmonary vasculature is normal in appearance. Impression: 1. Right pleural effusion decreased compared to the previous study. 2. Cardiomegaly. Electronically Signed by Power Jones MD 08/24/2018 04:05 P
--- NOTE | 2018-08-26 18:59 | RO ---
DATE OF PROCEDURE: 08/24/2018 PREPROCEDURE DIAGNOSIS: Recurrent right pleural effusion. POSTPROCEDURE DIAGNOSIS: Recurrent right pleural effusion . PROCEDURE: Insertion of tunneled PleurX catheter. SURGEON: Dr. Héctor Sims VEHICLE CHECK IN CLERK: ANESTHESIA: FINDINGS: PleurX catheter drained two liters of fluid. Chest x-ray showed the PleurX catheter in good place but not all of the fluid had been drained, with blunting of the right costophrenic angle. DESCRIPTION OF PROCEDURE: Under satisfactory moderate sedation achieved with 4 mg of Versed, the patient was prepped and draped in the usual sterile fashion. The entry and exit sites were infiltrated with 1% lidocaine as was the proposed tunnel tract. The pleural effusion was found with the exploring needle and a wire was placed. Incision was made over the wire and at the exit site. A tunnel was created between the exit site and the entrance site. The catheter was pulled through the tunnel. The wire site was then dilated with a peel-away introducer, and the PleurX catheter was placed without difficulty. It was positioned. The wound was closed with a running #4-0 Monocryl subcuticular suture. The catheter was secured to the chest wall with a #3-0 silk suture. Two liters of dileep fluid was drained. The patient tolerated the procedure well and left the operating room in satisfactory condition for the recovery room.
== END 2018-08-24 14:51 | disposition home or self-care (01) ==
LOC: M OPP 12:07
PROVIDERS: ATTEND Thoracic Surgery (Cardiothoracic Vascular Surgery)
DX: J90 Pleural effusion, not elsewhere classified (principal); R18.8 Other ascites; I12.9 Hypertensive chronic kidney disease with stage 1 through stage 4 chronic kidney disease, or unspecified chronic kidney disease; D53.9 Nutritional anemia, unspecified; I48.1 Persistent atrial fibrillation; G45.9 Transient cerebral ischemic attack, unspecified; N18.4 Chronic kidney disease, stage 4 (severe); Z79.01 Long term (current) use of anticoagulants; Z79.82 Long term (current) use of aspirin; Z79.899 Other long term (current) drug therapy; Z86.718 Personal history of other venous thrombosis and embolism; I71.4 Abdominal aortic aneurysm, without rupture; I51.7 Cardiomegaly
CPT/HCPCS: 32550; 36415; 71045; 71250; 76705; 82042; 82150; 82465; 82945; 83615; 83986; 84132; 84157; 84478; 87070; 87075; 87077; 87102; 87116; 87186; 87205; 87206; 88108; 88305; 88313; 89051; J2250

== ENCOUNTER → 2018-08-24 | Outpatient (CLI) | payer MEDICARE, BC ==
--- NOTE | 2018-08-24 11:50 | REP ---
CT of the chest without IV contrast for pleural effusion, evaluation: Comparison is the PA and lateral plain film study dated 08/17/2018. There is a [id number] right pleural effusion with compression atelectasis of the adjacent lung. No nodules or masses are identified. The left lung is clear. There are normal size and mediastinal nodes. The study is insensitive for hilar lymph node enlargement in the absence of IV contrast. Cardiac size is enlarged. There is a tiny pericardial effusion at the cardiac apex measuring 10 mm depth. There is calcified atheroma in the coronary arteries. In the upper abdomen there is ascites adjacent to the liver and spleen. The visualized portions of the kidneys appear atrophic. There is aneurysmal dilatation of the infrarenal l abdominal aorta measuring up to 4 cm in the visualized portion of the aorta. Impression: [id number] right pleural effusion. Tiny pericardial effusion at the cardiac apex. Cardiomegaly. Abdominal ascites. Infrarenal abdominal aortic aneurysm. Electronically Signed by Rhys Barclay MD 08/24/2018 11:42 A
== END ==
LOC: M RAD 10:53
PROVIDERS: ATTEND Thoracic Surgery (Cardiothoracic Vascular Surgery)
DX: I51.7 Cardiomegaly (principal); R18.8 Other ascites; I71.4 Abdominal aortic aneurysm, without rupture; J90 Pleural effusion, not elsewhere classified

== ENCOUNTER → 2018-08-24 | Outpatient (CLI) | payer MEDICARE, BC ==
--- NOTE | 2018-08-24 14:44 | REP ---
LIMITED ABDOMINAL ULTRASOUND: Ultrasound abdomen was performed to evaluate for ascites. There is mild scattered ascites in the abdomen and pelvis. Paracentesis is not performed due to the limited potential clinical benefit not great enough to outweigh potential risks. Electronically Signed by Rhys Ventura MD 08/25/2018 03:16 P
== END ==
LOC: M RADPRO 10:57
PROVIDERS: ATTEND Internal Medicine Nephrology
DX: R18.8 Other ascites (principal); Z53.8 Procedure and treatment not carried out for other reasons

== ENCOUNTER → 2018-08-31 | Outpatient (CLI) | payer MEDICARE, BC ==
[~2018-08-31] MED LIST changes: -MUPIROCIN 2% OINT 22 GM TUBE TOP ONE
--- NOTE | 2018-08-31 09:02 | REP ---
Chest two views HISTORY: Pleural effusion Comparison: 08/24/2018 A right pleural effusion is present slightly decreased compared to the previous study. Parenchymal density is present in the right lower lobe consistent with atelectasis or infiltrate. The left lung is clear. The cardiac silhouette is enlarged. The pulmonary vasculature is normal in appearance. The bony structure is intact. IMPRESSION: 1. Right pleural effusion decreased compared to the previous study. 2. Right lower lobe atelectasis or infiltrate. 3. Cardiomegaly. Electronically Signed by Power Jones MD 08/31/2018 08:53 A
== END ==
LOC: M SMT 08:09
PROVIDERS: ATTEND Thoracic Surgery (Cardiothoracic Vascular Surgery)
DX: J90 Pleural effusion, not elsewhere classified (principal)

== ENCOUNTER → 2018-09-07 | Outpatient (CLI) | payer MEDICARE, BC ==
--- NOTE | 2018-09-07 13:20 | REP ---
Clinical: Evaluate for ascites. Technique: Real time arceo scale ultrasound examination using curved array transducer. Findings: Generalized ultrasound examination through the abdomen and pelvis demonstrates a mild amount of ascites primarily in the right perihepatic space and right lower abdomen. Impression: Mild amount of ascites below threshold for paracentesis. Electronically Signed by Kenroy Veliz MD 09/07/2018 01:12 P
== END ==
LOC: M RADPRO 12:09
PROVIDERS: ATTEND Internal Medicine Nephrology
DX: R18.8 Other ascites (principal)

== ENCOUNTER → 2018-10-05 | Outpatient (CLI) | payer MEDICARE, BC ==
[~2018-10-05] MED LIST changes: -/CLON1TA PO; -/LABE20TA; -/LABE20TA PO; -/PANT40TA; -/TAMS4CA; -/WARF3TA PO; -/WARF5TA; +CLON-412 PO; +COUM1TAB17; +FLOM0.4C39; +LABE1TAB11; +LABE1TAB11 PO; +PROT1TAB2
--- NOTE | 2018-10-05 14:44 | REP ---
LIMITED ABDOMINAL ULTRASOUND: Limited abdominal ultrasound is performed to evaluate for ascites prior to a scheduled paracentesis. Minimal free fluid is seen in the abdomen and pelvis. There is not sufficient amount of ascites present to perform a paracentesis safely and the paracentesis would certainly not provide any therapeutic benefit. Paracentesis procedure is postponed. Unreviewed
== END ==
LOC: M RADPRO 12:20
PROVIDERS: ATTEND Internal Medicine Nephrology
DX: R18.8 Other ascites (principal); Z79.82 Long term (current) use of aspirin; Z79.899 Other long term (current) drug therapy

== ENCOUNTER → 2018-10-30 | Outpatient (CLI) | payer MEDICARE, BC ==
--- NOTE | 2018-10-30 09:35 | REP ---
Chest x-ray: Two views. History: Pleural effusion. Comparison study: August 31, 2018. Findings: A Pleurx catheter is again noted in the right pleural space. There is a small to moderate right pleural effusion blunting the right lateral pleural angle and posterior pleural angle. No left pleural effusion is seen. Mild cardiac enlargement is noted. The aorta is tortuous as before. Lung langston are otherwise clear. Impression: Small to moderate right pleural effusion again noted essentially unchanged. Pleurx catheter visible in place. Electronically Signed by Wade Barnard MD 10/30/2018 09:26 A
== END ==
LOC: M SMT 08:34
PROVIDERS: ATTEND Thoracic Surgery (Cardiothoracic Vascular Surgery)
DX: J90 Pleural effusion, not elsewhere classified (principal)

== ENCOUNTER → 2019-01-31 | Outpatient (REF) | payer MEDICARE, BC ==
[~2019-01-31] MED LIST changes: -CINA30TA PO; +CINA30TA4 PO
[2019-01-31 12:57] LABS: PROTHROMBIN TIME 60.8 SECONDS (11.8-14.0)
[2019-01-31 13:18] LABS: INR 6.94
== END ==
LOC: M SFHCCLAY 09:08
PROVIDERS: ATTEND Nurse Practitioner Family
DX: I48.91 Unspecified atrial fibrillation (principal)

== ENCOUNTER → 2019-02-02 | Outpatient (REF) | payer MEDICARE, BC ==
[2019-02-02 12:52] LABS: INR 3.31; PROTHROMBIN TIME 33.6 SECONDS (11.8-14.0)
== END ==
LOC: M SFHCCLAY 08:19
PROVIDERS: ATTEND Nurse Practitioner Family
DX: Z79.01 Long term (current) use of anticoagulants (principal)

== ENCOUNTER → 2019-03-08 | Outpatient (REF) | payer MEDICARE, BC ==
[2019-03-08 17:04] LABS: INR 1.81; PROTHROMBIN TIME 20.8 SECONDS (11.8-14.0)
== END ==
LOC: M SFHCCLAY 10:47
PROVIDERS: ATTEND Nurse Practitioner Family
DX: I48.91 Unspecified atrial fibrillation (principal); Z79.01 Long term (current) use of anticoagulants

== ENCOUNTER → 2019-03-13 | Outpatient (CLI) | payer MEDICARE, BC ==
--- NOTE | 2019-03-13 13:52 | REP ---
Clinical: Pleural effusion. Technique: PA and lateral. Comparison: 10/30/2018 Findings: Chronic pleuroparenchymal changes at the right lung base are appreciated and no obvious effusion is appreciated. Left hemithorax is clear. Stable cardiomegaly. No pneumothorax. Skeletal structures intact. Impression: Chronic pleuroparenchymal changes involving the right lower lung zone. No obvious effusion. Electronically Signed by Kenroy Veliz MD 03/13/2019 01:44 P
== END ==
LOC: M SMT 13:29
PROVIDERS: ATTEND Thoracic Surgery (Cardiothoracic Vascular Surgery)
DX: J90 Pleural effusion, not elsewhere classified (principal)

== ENCOUNTER → 2019-03-16 | Outpatient (REF) | payer MEDICARE, BC ==
[2019-03-16 11:53] LABS: INR 3.59; PROTHROMBIN TIME 35.9 SECONDS (11.8-14.0)
== END ==
LOC: M SFHCCLAY 09:51
PROVIDERS: ATTEND Nurse Practitioner Family
DX: I48.91 Unspecified atrial fibrillation (principal); Z79.01 Long term (current) use of anticoagulants

== ENCOUNTER → 2019-03-27 | Outpatient (CLI) | payer MEDICARE, BC ==
[2019-03-27 15:03] LABS: APPEARANCE, BODY FLUID HAZY (CLEAR); PERITONEAL FL COLOR YELLOW (COLORLESS); SOURCE, BODY FLUID PERITONEAL
[2019-03-27 15:10] VITALS: BP 125/73
--- NOTE | 2019-03-28 09:38 | REP ---
Ultrasound-guided paracentesis The procedure was performed by VIELKA Espinosa, under the direct supervision of Dr. Ventura. The risks and benefits of the procedure were explained to the patient and informed consent was obtained both verbally and written. Directly prior to the start of the procedure, a formal timeout was completed in the procedure room. Under ultrasound guidance, the largest pocket of fluid in the left flank was localized and skin was marked. The skin was then prepped and draped in a sterile fashion. 10 ml of 1% lidocaine was used as a local anesthetic. Using ultrasound guidance, an 8-Mongolian multi side-hole catheter was inserted using trocar technique. 2,150 mL of dileep colored fluid was withdrawn and discarded. The patient tolerated the procedure well and there were no immediate complications. After the appropriate monitored convalescence the patient was discharged from the department. Reviewed by VIELKA Collado 03/27/2019 05:28 P Electronically Signed by Rhys Ventura MD 03/28/2019 09:29 A
== END ==
LOC: M IRPRO 12:57
PROVIDERS: ATTEND Internal Medicine Nephrology
DX: R18.8 Other ascites (principal); I15.0 Renovascular hypertension; Z99.2 Dependence on renal dialysis

== ENCOUNTER → 2019-03-30 | Outpatient (CLI) | payer MEDICARE, BC ==
--- NOTE | 2019-03-30 18:41 | REP ---
REASON FOR EXAM: History of pleural effusion. Followup. COMPARISON: Multiple, the latest 03/13/2019. There is a right basilar opacity status quo. There is cardiomegaly status quo. There is evidence of fibrotic change status quo. The opacity seen along the inferior right lateral chest wall which was vertically oriented on the latest prior has gotten significantly smaller. No new abnormal opacities have developed. There is no significant change in the appearance of the osseous structures. IMPRESSION: Chronic changes as described above. There is evidence of some improvement along the right lateral chest wall possibly reflecting a decrease in a loculated pleural effusion. If clinically relevant followup with CT. Electronically Signed by Darshan Boo DO 04/09/2019 10:37 A
== END ==
LOC: M SMT 15:51
PROVIDERS: ATTEND Thoracic Surgery (Cardiothoracic Vascular Surgery)
DX: J90 Pleural effusion, not elsewhere classified (principal)

== ENCOUNTER → 2019-05-03 | Outpatient (CLI) | payer MEDICARE, BC | LOC: M LAB 15:11 | PROVIDERS: ATTEND Internal Medicine Nephrology | DX: D64.9 Anemia, unspecified (principal) ==

== ENCOUNTER 2019-05-04 08:08 | Outpatient (CLI) | payer MEDICARE, BC ==
[~2019-05-04] VITALS: Ht 177.8 cm; Wt 84.1 kg
[2019-05-04 08:15] VITALS: BP 146/70
[2019-05-04 08:35] VITALS: BP 149/70
[2019-05-04 08:50] VITALS: BP 110/93
[2019-05-04] MEDS ORDERED: diphenhydrAMINE 25 MG CAP PO ONE (09:00)
[2019-05-04] MEDS ORDERED: ACETAMINOPHEN 325 MG TAB PO ONE (09:00)
[2019-05-04 09:50] VITALS: BP 110/59
[2019-05-04 10:20] VITALS: BP 124/72
[2019-05-04 11:05] VITALS: BP 155/95
== END 2019-05-04 11:05 | disposition home or self-care (01) ==
LOC: M INFU 08:08
PROVIDERS: ATTEND Internal Medicine Nephrology
DX: N18.6 End stage renal disease (principal); D63.1 Anemia in chronic kidney disease
CPT/HCPCS: 36430; P9016

== ENCOUNTER → 2019-05-10 | Outpatient (CLI) | payer MEDICARE, BC ==
[2019-05-10 09:51] VITALS: BP 108/68
--- NOTE | 2019-05-10 10:39 | REP ---
Clinical: Pleural effusion. Technique: PA and lateral. Comparison: 03/30/2019. Findings: Stable cardiomegaly. Moderate right and small left pleural effusions have increased from prior examination. Associated bibasilar atelectasis noted. Catheter overlying the right cardiac border extending caudally and overlying the right upper quadrant remains stable in position. No pneumothorax. Impression: Moderate right and small left pleural effusions with associated bibasilar infiltrate/atelectasis increased when compared to prior examination. Electronically Signed by Kenroy Veliz MD 05/10/2019 10:30 A
--- NOTE | 2019-05-10 14:45 | REP ---
Ultrasound-guided paracentesis The procedure was performed under the direct supervision of Dr. Ventura. The risks and benefits of the procedure were explained to the patient and informed consent was obtained. The largest pocket of fluid was localized in the left flank using ultrasound guidance. The skin was prepped and draped in a sterile fashion. 1% lidocaine was used as a local anesthetic. An 8-Pashto multi side-hole catheter was inserted using trocar technique. 4350 ml of dark yellow fluid was withdrawn and discarded. The patient tolerated the procedure well and there were no immediate complications. After the appropriate amount of monitored convalescence the patient was discharged from the department. Electronically Signed by VIELKA Blankenship 05/10/2019 12:15 P Electronically Signed by Rhys Ventura MD 05/10/2019 02:36 P
== END ==
LOC: M IRPRO 08:41
PROVIDERS: ATTEND Internal Medicine Nephrology
DX: R18.8 Other ascites (principal)

== ENCOUNTER → 2019-05-24 | Outpatient (CLI) | payer MEDICARE, BC ==
[2019-05-24 13:55] VITALS: BP 124/77
--- NOTE | 2019-05-24 14:42 | REP ---
Two-view chest: 05/24/2019. Indication: Pleural effusion. Comparison: 05/10/2019. Findings: Compared to 2 weeks earlier, left-sided pleural effusion has resolved . Right-sided pleural effusion persists. The study is otherwise unchanged . Impression: Resolved left-sided pleural effusion. Otherwise unchanged exam compared to approximately 2 weeks earlier. Electronically Signed by Neel Bran DO 05/24/2019 02:34 P
--- NOTE | 2019-05-24 16:17 | REP ---
Ultrasound-guided paracentesis The procedure was performed under the direct supervision of Dr. Barnard. The risks and benefits of the procedure were explained to the patient and informed consent was obtained. The largest pocket of fluid was localized in the left lower quadrant using ultrasound guidance. The skin was prepped and draped in a sterile fashion. 1% lidocaine was used as a local anesthetic. Using ultrasound guidance an 8-Tajik multi side-hole catheter was inserted using trocar technique. 6000 ml of yellow fluid was withdrawn and discarded. The patient tolerated the procedure well and there were no immediate complications. After the appropriate amount of monitored convalescence the patient was discharged from the department. Electronically Signed by VIELKA Blankenship 05/24/2019 03:20 P Electronically Signed by Wade Barnard MD 05/24/2019 04:09 P
== END ==
LOC: M IRPRO 13:10
DX: R18.8 Other ascites (principal); Z99.2 Dependence on renal dialysis; I50.9 Heart failure, unspecified; R91.8 Other nonspecific abnormal finding of lung field; I51.7 Cardiomegaly; J90 Pleural effusion, not elsewhere classified

== ENCOUNTER → 2019-05-31 | Outpatient (REF) | payer MEDICARE, BC ==
[2019-05-31 13:59] LABS: PH BODY FLUID 7.472 UNITS (NOT ESTABLISHED); SOURCE, BODY FLUID pH PLEURAL
[2019-05-31 14:06] LABS: PLEURAL FL COLOR BROWN (COLORLESS); SOURCE, BODY FLUID PLEURAL
[2019-05-31 14:09] LABS: APPEARANCE, BODY FLUID CLOTTED (CLEAR)
[2019-05-31 15:06] LABS: AMYLASE, BODY FLUID 25 U/L (NOT ESTABLISHED); SOURCE, BODY FLUID AMYLASE PLEURAL; SOURCE, BODY FLUID GLUCOSE PLEURAL; SOURCE, BODY FLUID TOT PROTEIN PLEURAL
[2019-06-01 08:41] LABS: TOTAL PROTEIN, BODY FLUID 4.3 G/DL (NOT ESTABLISHED)
== END ==
LOC: M LAB REF 13:35
PROVIDERS: ATTEND Thoracic Surgery (Cardiothoracic Vascular Surgery)
DX: J90 Pleural effusion, not elsewhere classified (principal)

== ENCOUNTER → 2019-05-31 | Outpatient (REF) | payer MEDICARE, BC ==
[2019-06-04 12:28] LABS: CHOLESTEROL, BODY FLUID < 50 MG/DL (NOT ESTABLISHED); SOURCE, BODY FLUID ALBUMIN PLEURAL; SOURCE, BODY FLUID CHOL PLEURAL
== END ==
LOC: M LAB REF 11:00
PROVIDERS: ATTEND Internal Medicine Nephrology
DX: N18.6 End stage renal disease (principal); J90 Pleural effusion, not elsewhere classified; I50.9 Heart failure, unspecified

== ENCOUNTER → 2019-06-12 | Outpatient (CLI) | payer MEDICARE, BC ==
[2019-06-12 15:44] VITALS: BP 119/71
--- NOTE | 2019-06-12 16:59 | REP ---
Ultrasound-guided paracentesis The procedure was performed under the direct supervision of Dr. Ventura. The risks and benefits of the procedure were explained to the patient and informed consent was obtained. The largest pocket of fluid was localized in the left flank using ultrasound guidance. The skin was prepped and draped in a sterile fashion. 1% lidocaine was used as a local anesthetic. Using ultrasound guidance an 8-Scottish multi side-hole catheter was inserted using trocar technique. 4750 ml of cloudy yellow fluid was withdrawn and discarded. The patient tolerated the procedure well and there were no immediate complications. After the appropriate amount of monitored convalescence the patient was discharged from the department. Electronically Signed by VIELKA Blankenship 06/12/2019 04:11 P Electronically Signed by Rhys Ventura MD 06/12/2019 04:50 P
== END ==
LOC: M IRPRO 14:24
PROVIDERS: ATTEND Internal Medicine Nephrology
DX: N18.6 End stage renal disease (principal); R18.8 Other ascites

== ENCOUNTER → 2019-06-14 | Outpatient (CLI) | payer MEDICARE, BC ==
[2019-06-14 11:05] LABS: INR 2.34; PROTHROMBIN TIME 25.5 SECONDS (11.8-14.0)
--- NOTE | 2019-06-14 12:42 | REP ---
CHEST, TWO VIEWS: Two views of the chest are performed status post right thoracentesis. Loculated right pleural fluid is again seen inferiorly. There is a small amount of air within the loculated fluid status post thoracentesis. Right pleural drainage catheter is again noted. There is residual pleural fluid and thickening present on the right. There is a small amount of left pleural fluid and thickening. There is cardiomegaly. No free pneumothorax is seen. IMPRESSION: No free pneumothorax status post right thoracentesis. Small amount of air is seen in the loculated right pleural fluid inferiorly. Electronically Signed by Rhys Ventura MD 06/14/2019 12:52 P
[2019-06-14 12:58] LABS: APPEARANCE, BODY FLUID TURBID (CLEAR); PLEURAL FL COLOR YELLOW (COLORLESS); SOURCE, BODY FLUID PLEURAL
[2019-06-14 14:05] VITALS: BP 165/83
--- NOTE | 2019-06-14 16:54 | REP ---
ULTRASOUND-GUIDED RIGHT THORACENTESIS The procedure was performed under the direct supervision of Dr. Ventura. The risks and benefits of the procedure were explained to the patient and informed consent was obtained. The right pleural effusion was localized using ultrasound guidance. Note is made that the fluid shows multiple septations. The skin was prepped and draped in a sterile fashion. 1% lidocaine was used as a local anesthetic. Using ultrasound guidance an 8-Bengali multi side-hole catheter was inserted using trocar technique. Only about 5 ml of yellow colored fluid was able to be withdrawn and sent to the lab for analysis. The patient tolerated the procedure well and there were no immediate complications. After the appropriate amount of monitored convalescence the patient was discharged from the department. Electronically Signed by VIELKA Blankenship 06/14/2019 04:10 P Electronically Signed by Rhys Ventura MD 06/14/2019 04:45 P
== END ==
LOC: M IRPRO 10:24
PROVIDERS: ATTEND Internal Medicine Nephrology
DX: N18.6 End stage renal disease (principal); J90 Pleural effusion, not elsewhere classified; R18.8 Other ascites

== ENCOUNTER → 2019-06-26 | Outpatient (CLI) | payer MEDICARE, BC ==
[2019-06-26 14:15] VITALS: BP 137/69
--- NOTE | 2019-06-27 17:52 | REP ---
Ultrasound-guided paracentesis The procedure was performed by VIELKA Espinosa, under the direct supervision of Dr. Barnard. The risks and benefits of the procedure were explained to the patient and informed consent was obtained both verbally and written. Directly prior to the start of the procedure, a formal timeout was completed in the procedure room. Under ultrasound guidance, the largest pocket of fluid in the left flank was localized and skin was marked. The skin was then prepped and draped in a sterile fashion. 10 ml of 1% lidocaine 10 mg/ml was used as a local anesthetic. Using ultrasound guidance, an 8-Kazakh multi side-hole catheter was inserted using trocar technique. 4,900 mL of clear yellow colored fluid was withdrawn and discarded. The patient tolerated the procedure well and there were no immediate complications. After the appropriate monitored convalescence the patient was discharged from the department. Reviewed by VIELKA Collado 06/26/2019 04:03 P Electronically Signed by Wade Barnard MD 06/27/2019 05:44 P
== END ==
LOC: M IRPRO 12:46
PROVIDERS: ATTEND Internal Medicine Nephrology
DX: N18.6 End stage renal disease (principal); R18.8 Other ascites

== ENCOUNTER → 2019-07-10 | Outpatient (CLI) | payer MEDICARE, BC | LOC: M LAB 08:48 | PROVIDERS: ATTEND Internal Medicine Nephrology | DX: D64.9 Anemia, unspecified (principal) ==

== ENCOUNTER 2019-07-12 06:51 | Outpatient (CLI) | payer MEDICARE, BC ==
[2019-07-12] VITALS (10 sets, daily range): BP systolic 112–138; BP diastolic 64–79
[~2019-07-12] VITALS: Ht 177.8 cm; Wt 84.1 kg
[2019-07-12] MEDS ORDERED: ACETAMINOPHEN 500 MG TAB PO SCH (07:00)
[2019-07-12] MEDS ORDERED: diphenhydrAMINE 25 MG CAP PO SCH (07:00)
== END 2019-07-12 12:00 | disposition home or self-care (01) ==
LOC: M INFU 06:51
PROVIDERS: ATTEND Internal Medicine Nephrology
DX: D64.9 Anemia, unspecified (principal); N18.6 End stage renal disease; Z88.8 Allergy status to other drugs, medicaments and biological substances
CPT/HCPCS: 36430; P9016

== ENCOUNTER → 2019-07-17 | Outpatient (CLI) | payer MEDICARE, BC ==
[2019-07-17 14:27] VITALS: BP 121/71
--- NOTE | 2019-07-17 18:27 | REP ---
Ultrasound-guided paracentesis The procedure was performed under the direct supervision of Dr. Barnard. The risks and benefits of the procedure were explained to the patient and informed consent was obtained. The largest pocket of fluid was localized in the left flank using ultrasound guidance. The skin was prepped and draped in a sterile fashion. 1% lidocaine was used as a local anesthetic. An 8-Senegalese multi side-hole catheter was inserted using trocar technique. 4800 ml of yellow fluid was withdrawn and discarded. The patient tolerated the procedure well and there were no immediate complications. After the appropriate amount of monitored convalescence the patient was discharged from the department. Electronically Signed by VIELKA Blankenship 07/17/2019 04:16 P Electronically Signed by Wade Barnard MD 07/17/2019 06:17 P
== END ==
LOC: M IRPRO 12:35
PROVIDERS: ATTEND Internal Medicine Nephrology
DX: R18.8 Other ascites (principal); J90 Pleural effusion, not elsewhere classified; R80.9 Proteinuria, unspecified; Z99.2 Dependence on renal dialysis; Z88.1 Allergy status to other antibiotic agents

== ENCOUNTER → 2019-07-31 | Outpatient (CLI) | payer MEDICARE, BC ==
[2019-07-31 14:08] VITALS: BP 150/75
--- NOTE | 2019-07-31 16:46 | REP ---
Ultrasound-guided paracentesis The procedure was performed by VIELKA Espinosa, under the direct supervision of Dr. Barnard. The risks and benefits of the procedure were explained to the patient and informed consent was obtained both verbally and written. Directly prior to the start of the procedure, a formal timeout was completed in the procedure room. Under ultrasound guidance, the largest pocket of fluid in the left flank was localized and skin was marked. The skin was then prepped and draped in a sterile fashion. 10 ml of 1% lidocaine 10 mg/ml was used as a local anesthetic. Using ultrasound guidance, an 8-Irish multi side-hole catheter was inserted using trocar technique. 4,400 mL of clear yellow colored fluid was withdrawn and discarded. The patient tolerated the procedure well and there were no immediate complications. After the appropriate monitored convalescence the patient was discharged from the department. Reviewed by VIELKA Collado 07/31/2019 02:47 P Electronically Signed by Wade Barnard MD 07/31/2019 04:38 P
== END ==
LOC: M IRPRO 12:40
PROVIDERS: ATTEND Internal Medicine Nephrology
DX: N18.6 End stage renal disease (principal); R18.8 Other ascites

== ENCOUNTER → 2019-08-14 | Outpatient (CLI) | payer MEDICARE, BC ==
[2019-08-14 14:15] VITALS: BP 151/73
--- NOTE | 2019-08-14 19:51 | REP ---
Ultrasound-guided paracentesis The procedure was performed under the direct supervision of Dr. Barnard. The risks and benefits of the procedure were explained to the patient and informed consent was obtained. The largest pocket of fluid was localized in the left flank using ultrasound guidance. The skin was prepped and draped in a sterile fashion. 1% lidocaine was used as a local anesthetic. An 8-Kosovan multi side-hole catheter was inserted using trocar technique. 3500 ml of yellow fluid was withdrawn and discarded. The patient tolerated the procedure well and there were no immediate complications. After the appropriate amount of monitored convalescence the patient was discharged from the department. Electronically Signed by VIELKA Blankenship 08/14/2019 04:09 P Electronically Signed by Wade Barnard MD 08/14/2019 07:41 P
== END ==
LOC: M IRPRO 12:45
PROVIDERS: ATTEND Internal Medicine Nephrology
DX: N18.6 End stage renal disease (principal); R18.8 Other ascites

== ENCOUNTER → 2019-08-28 | Outpatient (CLI) | payer MEDICARE, BC ==
[~2019-08-28] MED LIST changes: +ASPI81CH33 PO; +SODIUM BICARBONATE 8.4% INJ 50MEQ 50 ML VIAL As Ordered ONE
[2019-08-28 13:49] VITALS: BP 149/73
--- NOTE | 2019-08-28 15:55 | REP ---
Ultrasound-guided paracentesis The procedure was performed by VIELKA Espinosa, under the direct supervision of Dr. Barnard. The risks and benefits of the procedure were explained to the patient and informed consent was obtained both verbally and written. Directly prior to the start of the procedure, a formal timeout was completed in the procedure room. Under ultrasound guidance, the largest pocket of fluid in the left lower quadrant was localized and skin was marked. The skin was then prepped and draped in a sterile fashion. 11 ml buffered lidocaine was used as a local anesthetic. Using ultrasound guidance, an 8-Venezuelan multi side-hole catheter was inserted using trocar technique. 3,700 mL of dark yellow colored fluid was withdrawn and discarded. The patient tolerated the procedure well and there were no immediate complications. After the appropriate monitored convalescence the patient was discharged from the department. Reviewed by VIELKA Collado 08/28/2019 02:01 P Electronically Signed by Wade Barnard MD 08/28/2019 03:47 P
== END ==
LOC: M IRPRO 12:32
PROVIDERS: ATTEND Internal Medicine Nephrology
DX: N18.6 End stage renal disease (principal); R18.8 Other ascites

== ENCOUNTER → 2019-09-11 | Outpatient (CLI) | payer MEDICARE, BC ==
[~2019-09-11] MED LIST changes: -SODIUM BICARBONATE 8.4% INJ 50MEQ 50 ML VIAL As Ordered ONE
[2019-09-11 14:35] VITALS: BP 125/76
--- NOTE | 2019-09-11 18:01 | REP ---
ULTRASOUND-GUIDED PARACENTESIS The procedure was performed under the direct supervision of Dr. Barnard. The risks and benefits of the procedure were explained to the patient and informed consent was obtained. The largest pocket of fluid was localized in the left flank using ultrasound guidance. The skin was prepped and draped in a sterile fashion. 1% lidocaine was used as a local anesthetic. Using ultrasound guidance an 8-Lao multi side-hole catheter was inserted using trocar technique. 2700 ml of yellow fluid was withdrawn and discarded. The patient tolerated the procedure well and there were no immediate complications. After the appropriate amount of monitored convalescence the patient was discharged from the department. Electronically Signed by VIELKA Blankenship 09/11/2019 04:11 P Electronically Signed by Wade Barnard MD 09/11/2019 05:51 P
== END ==
LOC: M IRPRO 12:45
PROVIDERS: ATTEND Internal Medicine Nephrology
DX: R18.8 Other ascites (principal); N18.6 End stage renal disease; R60.1 Generalized edema

== ENCOUNTER → 2019-09-25 | Outpatient (CLI) | payer MEDICARE, BC ==
[2019-09-25 14:41] VITALS: BP 104/65
--- NOTE | 2019-09-26 09:15 | REP ---
Ultrasound-guided paracentesis The procedure was performed under the direct supervision of Dr. Ventura. The risks and benefits of the procedure were explained to the patient and informed consent was obtained. The largest pocket of fluid was localized in the left flank using ultrasound guidance. The skin was prepped and draped in a sterile fashion. 1% lidocaine was used as a local anesthetic. Using ultrasound guidance an 8-H[place] Konger multi side-hole catheter was inserted using trocar technique. 2400 ml of yellow fluid was withdrawn and discarded. The patient tolerated the procedure well and there were no immediate complications. After the appropriate amount of monitored convalescence the patient was discharged from the department. Electronically Signed by VIELKA Blankenship 09/25/2019 05:08 P Electronically Signed by Rhys Ventura MD 09/26/2019 09:05 A
== END ==
LOC: M IRPRO 12:46
PROVIDERS: ATTEND Internal Medicine Nephrology
DX: R18.8 Other ascites (principal); N18.6 End stage renal disease; R60.1 Generalized edema

== ENCOUNTER → 2019-10-09 | Outpatient (CLI) | payer MEDICARE, BC ==
[2019-10-09 14:00] VITALS: BP 131/59
--- NOTE | 2019-10-09 18:14 | REP ---
Ultrasound-guided paracentesis The procedure was performed by VIELKA Espinosa, under the direct supervision of Dr. Ventura. The risks and benefits of the procedure were explained to the patient and informed consent was obtained both verbally and written. Directly prior to the start of the procedure, a formal timeout was completed in the procedure room. Under ultrasound guidance, the largest pocket of fluid in the right lower quadrant was localized and skin was marked. The skin was then prepped and draped in a sterile fashion. 10 ml of 1% lidocaine 10 mg/ml was used as a local anesthetic. Using ultrasound guidance, an 8-Frisian multi side-hole catheter was inserted using trocar technique. 2,800 mL of clear yellow colored fluid was withdrawn and discarded. The patient tolerated the procedure well and there were no immediate complications. After the appropriate monitored convalescence the patient was discharged from the department. Reviewed by VIELKA Collado 10/09/2019 04:10 P Electronically Signed by Rhys Ventura MD 10/09/2019 06:05 P
== END ==
LOC: M IRPRO 12:40
PROVIDERS: ATTEND Internal Medicine Nephrology
DX: N18.6 End stage renal disease (principal); R18.8 Other ascites; Z88.8 Allergy status to other drugs, medicaments and biological substances

== ENCOUNTER → 2019-10-14 | Outpatient (REF) | LOC: M LAB 14:30 | DX: Z02.89 Encounter for other administrative examinations (principal) ==